=== PATIENT | male | born 1970 | race Caucasian/White ===

== ENCOUNTER → 2016-08-28 | Outpatient (CLI) | payer OTHER ==
--- NOTE | 2016-08-28 16:35 | REP ---
Clinical: Spondylosis. Technique: AP, lateral, flexion, extension, open-mouth, bilateral oblique views. Findings: Straightening of normal lordosis is appreciated along with mild to moderate multilevel degenerative changes including anterior spurring, endplate sclerosis and minimal disc space narrowing. Alignment is maintained and there is no evidence for acute fracture / compression injury or spondylolisthesis. Open mouth view demonstrates normal C1-C2 articulation and odontoid process. Oblique views demonstrate relatively patent neural foramen bilaterally. Impression: Early moderate multilevel degenerative changes including anterior spurring and minimal disc space narrowing. Stable alignment without subluxation. Signed by Ashkan Calixto MD 08/28/2016 04:26 P
--- NOTE | 2016-08-28 16:37 | REP ---
Clinical: Spondylosis . Technique: AP, lateral, bilateral oblique, flexion/extension and coned-down views. Findings: Alignment and lordosis is maintained. The vertebral bodies including transverse process and spinous processes are intact and normal. There is no evidence for acute fracture / compression injury or subluxation. No evidence for spondylolysis or spondylolisthesis. No significant degenerative change is noted. Impression: Age appropriate lumbosacral spine radiograph series. Signed by Ashkan Calixto MD 08/28/2016 04:27 P
--- NOTE | 2016-08-28 17:51 | REP ---
CT of lumbosacral spine 08/28/2016 Indication: Spondylolysis Comparison: Lumbosacral spine series 08/28/2016 performed with lateral bending films Technique: 4 mm reconstructed axial, sagittal, and coronal images were obtained of the lumbosacral spine. There is no acute fracture or spondylolisthesis in the lumbosacral spine. Disc spaces are maintained. Minimal posterior disc bulges bulges are noted at few levels levels. Visualized portions of the abdominal aorta, adrenal glands, kidneys within normal limits. Impression: No evidence of lumbosacral spine fracture or spondylolisthesis. The disc spaces are well maintained. Signed by Erma Rooney MD 08/28/2016 05:42 P
--- NOTE | 2016-08-28 18:11 | REP ---
CT CERVICAL SPINE WITHOUT CONTRAST: HISTORY: Spondylosis. Disc bulges are present at the C3-4 and C4-5 levels. Disc bulge with associated osteophyte formation are present at the C5-6 and C6-7 levels. There is minimal narrowing of the spinal canal. Uncinate process and/or facet hypertrophy are present at the C3-4 through C6-7 levels. These findings produce minimal narrowing of the neural foramina. The C4-5 through C6-7 intervertebral discs are decreased in height consistent with disc degeneration. There is no subluxation. There is loss of the normal lordotic curve. IMPRESSION: There is cervical spondylosis at the C3-4 through C6-7 levels. Signed by Aamir Kim MD 08/29/2016 08:45 A
--- NOTE | 2016-08-28 22:42 | REP ---
CT brain without contrast 08/28/2016 Indicatio: headache. No additional history is available, and no prior studies for comparison Findings: There is spray artifact is associated with a metallic 1 cm density projected over the right ambient cistern. There is area of diffuse encephalomalacia involving the right occipital cortex and portion of the right parietal cortex as well , consistent with old infarct. There is no intracranial hemorrhage or extra-axial fluid collection. Calvarial defects are identified within the right posterior parietal skull, high central posterior parietal as well as the right temporal parietal skull. Visualized portions of the paranasal sinuses and mastoid sinuses are clear. Impression: Retained schrapnel and/or metallic clip. No acute intracranial pathology or hemorrhage. 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
== END ==
LOC: M RAD 15:49
PROVIDERS: ATTEND Neurological Surgery
DX: R51 Headache (principal); M47.892 Other spondylosis, cervical region; M47.896 Other spondylosis, lumbar region